=== PATIENT | male | born 1950 | race Caucasian/White ===

== ENCOUNTER 2025-02-28 12:08 | Outpatient (CLI) | payer MEDICARE, OTHER | END 2025-02-28 12:09 | disposition home or self-care (01) | LOC: CSHULT 12:08 | PROVIDERS: ATTEND Specialist | DX: E07.89 Other specified disorders of thyroid (principal); E04.2 Nontoxic multinodular goiter | CPT/HCPCS: 76536 ==

== ENCOUNTER 2025-03-10 12:29 | Day surgery (SDC) | payer MEDICARE, OTHER ==
[2025-03-10] MEDS ORDERED: Sodium Bicarbonate 2.5 MEQ/5 ML SDV ONE (12:54)
== END 2025-03-10 13:43 | disposition home or self-care (01) ==
LOC: CSHULT 12:29
PROVIDERS: ATTEND Specialist
PROC: 0G9H3ZX Drainage of Right Thyroid Gland Lobe, Percutaneous Approach, Diagnostic (ICD-10-PCS; principal; 2025-03-10)
DX: E04.2 Nontoxic multinodular goiter (principal)
CPT/HCPCS: 10005; 88173